=== PATIENT | male | born 1965 | race Caucasian/White ===

== ENCOUNTER 2022-10-03 07:46 | Outpatient (CLI) | payer BC, SELFPAY ==
[2022-10-03 10:06] LABS: Albumin* 4.7 g/dL (3.3-5.0); Chloride* 99 mmol/L (96-114)
[2022-10-03 10:07] LABS: Potassium* 4.2 mmol/L (3.6-5.1); Sodium* 137 mmol/L (135-149)
[2022-10-03 10:09] LABS: Aspartate Amino Transferase* 29 U/L (12-35); Bilirubin Total* 1.1 mg/dL (0.1-1.5); Carbon Dioxide* 28 mmol/L (20-32); Cholesterol* 244 mg/dL (90-199); Creatinine* 0.8 mg/dL (0.5-1.5); Estimated Glomerular Filt Rate 103 ml/min; Total Protein* 7.5 g/dL (6.0-8.3)
[2022-10-03 10:10] LABS: Alanine Aminotransferase* 37 U/L (4-50); Alkaline Phosphatase* 105 U/L (40-150); Blood Urea Nitrogen* 20 mg/dL (7-30); Calcium* 9.5 mg/dL (8.4-10.6); Glucose* 215 mg/dL (60-115); HDL Cholesterol* 35 mg/dL (>=40); LDL Cholesterol Calculated 134 mg/dL (<100); Triglycerides* 374 mg/dL (40-149)
[2022-10-03 10:33] LABS: Creatinine Urine 74.2 mg/dL
[2022-10-03 10:37] LABS: Microalbumin Creatinine Ratio 60 mg/g (0-30); Microalbumin Urine 5 mg/dL
== END 2022-10-03 07:47 | disposition home or self-care (01) ==
PROVIDERS: PCP Family Medicine; Visit Provider Family Medicine
DX: Z00.00 Encounter for general adult medical examination without abnormal findings (principal); E11.9 Type 2 diabetes mellitus without complications; E78.5 Hyperlipidemia, unspecified; I10 Essential (primary) hypertension
CPT/HCPCS: 80053; 80061; 82043; 82570

== ENCOUNTER 2024-02-13 07:30 | Outpatient (CLI) | payer BC, SELFPAY ==
--- OUTSIDE RECORDS SUMMARY | 2024-02-17 16:49 | XMS_ITS | Referral Summary ---
Author Name Unknown Organization [place] Address [address] [place] [address]. [place] [address] Care Team Providers Care Change Release Manager Name Role Phone Tatum Chavez MD Unavailable [phone] [facility] Primary Care Provider Leo Humphrey MD Unavailable + Allergies No known active allergies Medications Medication Sig Dispensed Refills Start Date End Date Status blood glucose monitoring (ONE TOUCH ULTRA 2) meter device kit 01/20/2016 Active ONE TOUCH ULTRA test strip 01/20/2016 Active Glucose-Vitamin C-Vitamin D (TRUEPLUS GLUCOSE ON THE GO) CHEW Take 1-4 chew tab by mouth daily as needed 01/20/2016 Active hydrochlorothiazid e (HYDRODIURIL) 25 MG tablet Take 25 mg by mouth daily 1 12/14/2015 Active LANTUS SOLOSTAR 100 UNIT/ML solnIndications:Ty pe 2 Diabetes Mellitus Inject 20 Units Subcutaneous daily Takes in afternoon 01/20/2016 Active HUMALOG KWIKPEN 100 UNIT/ML soln Inject 3 Units Subcutaneous 3 times daily (before meals) 01/20/2016 Active SURE COMFORT PEN NEEDLES 31G X 8 MM 01/20/2016 Active SURE COMFORT LANCETS 30G MISC 01/20/2016 Active aspirin EC 325 MG tabletIndications: Rupture of anterior cruciate ligament of left knee, subsequent encounter Take 1 tablet (325 mg) by mouth daily 30 tablet 3 02/23/2016 Active B-D U/F insulin pen needle 04/08/2016 Active Active Problems Problem Noted Date Diagnosed Date Post-operative pain 02/24/2016 Social History Tobacco Use Types Packs/Day Years Used Date Smoking Tobacco: Never Alcohol Use Standard Drinks/Week Comments Yes 0 (1 standard drink = 0.6 oz pur e alcohol) seldom Sex and Gender Information Value Date Recorded Sex Assigned at Not on file Gender Identity Not on file Sexual Orientation Not on file Last Filed Vital Signs Vital Sign Reading Time Taken Comments Blood Pressure 122/86 01/22/2018 9:52 AM CDT Pulse 62 01/22/2018 9:52 AM CDT Temperature 36.7 ??C (98.1 ??F) 04/11/2016 10:48 AM C DT Respiratory Rate 16 02/25/2016 7:09 AM CDT Oxygen Saturation 98% 01/22/2018 9:52 AM CDT Inhaled Oxygen Concentration - - Weight 104 kg (229 lb 4.8 oz) 02/24/2016 6:44 PM CDT Height 175.3 cm (5' 9) 02/23/2016 8:43 AM CDT Body Mass Index 33.86 02/23/2016 8:43 AM CDT Plan of Treatment Not on file Medical Devices Implanted Type Area Tourist Agent Device Identifier Shelf Expiration Date Model / Serial / Lot Imp Highland Arthrex Acl Tight Rope Repair [id number] Implanted:Qty: 1 on 02/23/2016 by Leo Humphrey MD at Left: Knee ARTHREX 10/29/2019 AR-1588RT / / [id number] Imp Washer Arthrex Spiked For Canc Scr 18mm Ar-1349l Implanted:Qty: 1 on 02/23/2016 by Leo Humphrey MD at Left: Knee ARTHREX 06/28/2020 AR-1349L / / [id number] Imp Scr Arthrex Bi-Cortical Post 4.5x47.5mm Ti Ar-[id number] Implanted:Qty: 1 on 02/23/2016 by Leo Humphrey MD at Left: Knee ARTHREX 02/27/2020 AR-1365-4 75 / / [id number] Imp Highland Arthrex Bio-Swivelock 5.5mm Ar-2323bcc Implanted:Qty: 1 on 02/23/2016 by Leo Humphrey MD at Left: Knee ARTHREX 08/28/2017 AR-2323BC C / / [id number] Imp Highland Arthrex Acl Tight Rope Repair Ar-[id number] Implanted:Qty: 1 on 02/23/2016 by Leo Humphrey MD at Left: Knee ARTHREX 07/29/2020 AR-1588RT / / [id number] Tight Rope Abs- Implant Implanted:Qty: 1 on 02/23/2016 by Leo Humphrey MD at Left: Knee ARTHREX 12/27/2020 AR-1588TN / / [id number] Semitendinosus Implanted:Qty: 1 on 02/23/2016 by eLo Humphrey MD at Left: Knee BIOLOGIC 10/18/2019 [id number] / [id number] / [id number] Anterior Tibial Tendon Implanted:Qty: 1 on 02/23/2016 by Leo Humphrey MD at Left: Knee LIFENET 01/02/2021 [id number] / / BALA/TIB/ T Btb Arnaldo Implanted:Qty: 1 on 02/23/2016 by Leo Humphrey MD at Left: Knee MUSCULOSKELETAL TRANSPLANT FOUNDAT. 04/20/2020 [id number] / [id number] / 2910 Imp Highland Arthrex Abs Tight Rope 14mm Button Ar-1588tb-1 Implanted:Qty: 1 on 02/23/2016 by Leo Humphrey MD at Left: Knee ARTHREX 09/28/2020 AR-1588TB -1 / / [id number] Imp Scr Arthrex Biocomposite Interference 7x23mm Ar-1370c Implanted:Qty: 1 on 02/23/2016 by Leo Humphrey MD at Left: Knee ARTHREX 08/28/2017 AR-1370C / / [id number] Imp Scr Arthrex Biocomposite Interference 8x23mm Ar-1380c Implanted:Qty: 1 on 02/23/2016 by Leo Humphrey MD at Left: Knee ARTHREX 06/28/2016 AR-1380C / / [id number] Advance Directives For more information, please contact: [phone] * Full Code (Latest Code Status on File) Date Activated Date Inactivated Comments 02/25/2016 8:50 AM * Full Code Date Activated Date Inactivated Comments 02/24/2016 2:27 PM 02/25/2016 8:50 AM Care Teams Change Release Manager Relationship Specialty Start Date End Date [facility] [address] [place] [address] PCP - General 02/29/16 Tatum Chavez MD [address] [address] Referring Physician Surgery 01/25/16 [place] [address] [place] [address] Orthopedics 01/19/18
--- OUTSIDE RECORDS SUMMARY | 2024-02-17 16:49 | XMS_ITS | Clinical Summary ---
Author Name Unknown Organization [facility] Address [address] [place] [address]. [place] [address] Care Team Providers Care Concrete Building Assembler Name Role Phone Tatum Chavez MD Unavailable [phone] [facility] Primary Care Provider Leo Humphrey [...] Noted Date Diagnosed Date Post-operative pain 02/24/2016 Family History Medical History Relation Comments Hypertension Father Parkinsonism Father Heart Disease Maternal Grandmother Dementia Paternal Grandfather Relation Status Comments Father Maternal Grandmother Paternal Grandfather Social History Tobacco Use Types Packs/Day Years [...] on file Medical Devices Implanted Type Area Security Flex Utility Officer Device Identifier Shelf Expiration Date Model / Serial / Lot Imp Bergoo Arthrex Acl Tight Rope Repair Ar-[id number] Implanted:Qty: 1 on 02/23/2016 by Leo Humphrey MD at [facility] Left: Knee ARTHREX 10/29/2019 AR-1588RT / / [id number] Imp Washer Arthrex Spiked For Canc Scr 18mm Ar-1349l Implanted:Qty: 1 on 02/23/2016 by Leo Humphrey MD at [facility] Left: Knee ARTHREX 06/28/2020 AR-1349L / / [id number] Imp Scr Arthrex Bi-Cortical Post 4.5x47.5mm Ti Ar-1365-475 Implanted:Qty: 1 on 02/23/2016 by Leo Humphrey MD at [facility] Left: Knee ARTHREX 02/27/2020 AR-1365-4 75 / / [id number] Imp Bergoo Arthrex Bio-Swivelock 5.5mm Ar-2323bcc Implanted:Qty: 1 on 02/23/2016 by Leo Humphrey MD at [facility] Left: Knee ARTHREX 08/28/2017 AR-2323BC C / / [id number] Imp Bergoo Arthrex Acl Tight Rope Repair Ar-[id number] Implanted:Qty: 1 on 02/23/2016 by Leo Humphrey MD at [facility] Left: Knee ARTHREX 07/29/2020 AR-1588RT / / [id number] Tight Rope Abs- Implant Implanted:Qty: 1 on 02/23/2016 by Leo Humphrey MD at [facility] Left: Knee ARTHREX 12/27/2020 AR-1588TN / / [id number] Semitendinosus Implanted:Qty: 1 on 02/23/2016 by Leo Humphrey MD at [facility] Left: Knee BIOLOGIC 10/18/2019 [id number] / [id number] / [id number] Anterior Tibial Tendon Implanted:Qty: 1 on 02/23/2016 by Leo Humphrey MD at [facility] Left: Knee LIFENET 01/02/2021 [id number] / / BALA/TIB/ T Btb Arnaldo Implanted:Qty: 1 on 02/23/2016 by Leo Humphrey MD at [facility] Left: Knee MUSCULOSKELETAL TRANSPLANT FOUNDAT. 04/20/2020 [id number] / [id number] / 2910 Imp Bergoo Arthrex Abs Tight Rope 14mm Button Ar-1588tb-1 Implanted:Qty: 1 on 02/23/2016 by Leo Humphrey MD at [facility] Left: Knee ARTHREX 09/28/2020 AR-1588TB -1 / / [id number] Imp Scr Arthrex Biocomposite Interference 7x23mm Ar-1370c Implanted:Qty: 1 on 02/23/2016 by Leo Humphrey MD at [facility] Left: Knee ARTHREX 08/28/2017 AR-1370C / / [id number] Imp Scr Arthrex Biocomposite Interference 8x23mm Ar-1380c Implanted:Qty: 1 on 02/23/2016 by Leo Humphrey MD at [facility] Left: Knee ARTHREX 06/28/2016 AR-1380C / / [id number] Advance Directives For more information, please contact: [phone] * Full Code (Latest Code Status on File) Date Activated Date Inactivated Comments 02/25/2016 8:50 AM * Full Code Date Activated Date Inactivated Comments 02/24/2016 2:27 PM 02/25/2016 8:50 AM Care Teams Concrete Building Assembler Relationship Specialty Start Date End Date [facility] [address] [place] [address] PCP - General 02/29/16 Tatum Chavez MD [address] [address] Referring Physician Surgery 01/25/16 [place] [address] [place] [address] Orthopedics 01/19/18
--- OUTSIDE RECORDS SUMMARY | 2024-02-17 16:49 | XMS_ITS | Clinical Summary ---
Author Name Unknown Organization [facility] Address [place] [address] Care Team Providers Care Mercury Cracking Tester Name Role Phone [facility] Primary Care Provider Unavailable Allergies No known active allergies Medications Medication Sig Dispensed Refills Start Date End Date Status hydroCHLOROthiazide 12.5 mg tablet 0 10/17/2016 Active aspirin chewable 81 mg chewable tablet Take 81 mg by mouth. Active acetaminophen (TYLENOL) 325 mg tablet Take 650 mg by mouth every 4 hours. 02/23/2016 Active alcohol swabs (ALCOHOL PREP PADS) by Not Applicable route. 01/20/2016 Active blood-glucose meter (ONETOUCH ULTRA2) 01/20/2016 Active blood sugar diagnostic (ONETOUCH ULTRA TEST) strip 01/20/2016 Active lancets (SURE COMFORT LANCETS) 30 gauge misc Test 4 times per day 01/20/2016 Acti ve glucose 4 gram chewable tablet Take 4 tablets by mouth as needed to treat low blood glucose. 01/20/2016 Active lisinopril (PRINIVIL; ZESTRIL) 2.5 mg tablet Take 10 mg by mouth. 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 11/14/2016 Controlled type 2 diabetes m ellitus without complication, without long-term current use of insulin 11/14/2016 HTN (hypertension) 07/28/2013 Immunizations Name Administration Dates Next Due Tdap 01/15/2016,11/27/2008 Social History Tobacco Use Types Packs/Day Years Used Date Smoking Tobacco: Former Cigarettes Smokeless Tobacco: Never Tobacco Cessation:Counseling Given: Yes Alcohol Use Standard Drinks/Week Comments Yes 0 (1 standard drink = 0.6 oz pur e alcohol) occasional Social Connections Answer Date Recorded Frequency of Communication with Friends and Fami ly Not on file 09/29/2021 Financial Resource Strain Answer Date R ecorded Difficulty of Paying Living Expenses Not on file 09/29/2021 Difficulty of Paying Living Expenses Not on file 09/29/2021 Sex and Gender Information Value Date Recorded Sex Assigned at Not on file Gender Identity Not on file Sexual Orientation Not on file Obstetrics History Last Filed Vital Signs Vital Sign Reading Time Taken Comments Blood Pressure 138/92 07/23/2021 8:40 AM CDT Pulse 93 07/23/2021 8:40 AM CDT Temperature 37 ??C (98.6 ??F) 10/06/2015 10: 17 AM TENNIS BALL COVERER HAND Respiratory Rate - - Oxygen Saturation 97% 07/23/2021 8:40 AM CDT Inhaled Oxygen Concentration - - Weight 98.8 kg (217 lb 12.8 oz) 07/23/2021 8:40 AM CDT Height 179 cm (5' 10.47) 07/23/2021 8:40 AM CDT Body Mass Index 30.84 07/23/2021 8:40 AM CDT Plan of Treatment Health Maintenance Due Date Last Done Comments Depression screening for age 12+ 1977 HIV for age 15-65 1980 Hepatitis C screening for age 18-79 1983 Colonoscopy through age 75 2010 Zoster (shingles) series for age 50+ (1 of 2) 2015 Lipids for age 45-75 01/15/2017 01/16/2012 BMI (ht and wt on same day) for age 18+ 07/23/2022 07/23/2021, 10/06/2015 COVID-19 vaccine series ( season) 2023 Influenza for age 50-64 05/30/2024 Tetanus booster 01/14/2026 01/15/2016, 09/2008 (Completed outside of [facility]), 11/27/2008 Tdap Completed 01/15/2016, 11/27/2008 Pneumococcal series for age 6-64 Aged Out No longer eligible based on patient's age to complete this topic Procedures Procedure Name Priority Date/Time Associated Diagnosis Comments LIPID PANEL W REFLEX MEASURED LDL Routine 01/16/2012 7:13 AM CDT Chest pain, unspecified from Last 3 Months or Most Recently Relevant to Health Maintenance Results * (ABNORMAL) LIPID PANEL W REFLEX MEASURED LDL (01/16/2012 7:13 AM CDT) CHOLESTEROL,TOTAL 214(H) 100 - 199 mg/dL [facility] TRIGLYCERIDES 357(H) <150 mg/dL [facility] HDL CHOLESTEROL 27(L) >40 mg/dL [facility] CHOL/HDL RATIO 7.93(H) <4.50 [facility] LDL CHOLESTEROL 116 <131 mg/dL [facility] PATIENT STATUS Fasting [facility] Blood specimen (specimen) BLOOD SPECIMEN / Unknown 01/16/2012 7:13 AM CDT 01/16/2012 7:09 AM CDT Omari Silva MD CHEMISTRY Performing Organization Address City/State/[facility] Co de Phone Number [facility] [address] [place] [address] from Last 3 Months or Most Recently Relevant to Health Maintenance Care Teams Mercury Cracking Tester Relationship Specialty Start Date [facility] - [facility] Obstetrics and Gynecology 11/04/16
--- OUTSIDE RECORDS SUMMARY | 2024-02-17 16:49 | XMS_ITS | Encounter Summary ---
Author Name Unknown Organization [facility] Address [address] [place] [address]. [place] [address] Care Team Providers Care Security Systems Manager Name Role Phone Tatum Chavez MD Unavailable [facility] Primary Care Provider Leo Humphrey MD Unavailable + Reason for Visit * Reason Onset Date Comments Call Back 03/15/2016 question about b ending knee Encounter Details Date Type Department Care Team (Late st Contact Info) Description 03/15/[address] [address] Leo Humphrey MD [address] [place] [address] Call Back (question about bending knee) Social History Tobacco Use Types Packs/Day Years Used Date Smoking Tobacco: Never Alcohol Use Standard Drinks/Week Comments Yes 0 (1 standard drink = 0.6 oz pur e alcohol) seldom Sex and Gender Information Value Date Recorded Sex Assigned at Not on file Gender Identity Not on file Sexual Orientation Not on file documented as of this encounter Miscellaneous Notes * Telephone Encounter - Venessa Torrez RN - 03/15/2016 4:15 PM CDT Called patient back and left message that he can do range of motion without his brace on but for any strengthening exercises or any other movement he needs to have the brace on. Instructed patient tocall back with any other questions. Venessa Torrez, RN * Telephone Encounter - Nicolette Carranza - 03/15/2016 12:32 PM CDT Phone Message Name of caller: Laura Phone number: [phone] (home) Detailed Message: Yes Best Time: Any Relation to patient: Self Is this a new patient? No Reason for call: Other: Samuel is calling to clarify is patient should be bending left knee out of brace or in brace. Patient requesting to have either Dr. Humphrey or nurse call him back. Please advise. MESSAGE ROUTED TO: Adult Clinics: Orthopedics - [id number] documented in this encounter Plan of Treatment Not on file documented as of this encounter Visit Diagnoses Not on filedocumented in this encounter Care Teams Security Systems Manager Relationship Specialty Start Date End Date Center - [facility] [address] [place] [address] PCP - General 02/29/16 Tatum Chavez MD [address] [address] Referring Physician Surgery 01/25/16 [place] [address] [place] [address] Orthopedics 01/19/18 documented as of this encounter
== END 2024-02-13 07:31 | disposition home or self-care (01) ==
LOC: NFLDREF 02-17 16:47
PROVIDERS: PCP Family Medicine; Referring Provider Family Medicine; Visit Provider Family Medicine
DX: Z00.00 Encounter for general adult medical examination without abnormal findings (principal); E11.9 Type 2 diabetes mellitus without complications; I10 Essential (primary) hypertension; E78.5 Hyperlipidemia, unspecified; Z12.5 Encounter for screening for malignant neoplasm of prostate
CPT/HCPCS: 80053; 80061; 82043; 82570; G0103